=== PATIENT | male | born 1965 | race Caucasian/White ===

== ENCOUNTER 2018-04-09 11:37 | Observation (INO) | payer OTHER ==
[2018-04-09] MEDS ORDERED: NITROGLYCERIN OINT 1 INCH/GM PACKET TOPICAL STA (11:58)
--- NOTE | 2018-04-09 12:03 | ED ---
General Adult HPI - General Chief complaint: Chest Pain Stated complaint: chest pain Time Seen by Provider: 04/09/18 11:45 Source: patient, EMS, RN notes reviewed Mode of arrival: EMS Limitations: no limitations - History of Present Illness Initial comments: This is a 52-year-old male who has a past medical history significant for an NV , smoking, high blood pressure, tachycardia, and addiction to Suboxone. She also states he has a family history of heart disease. Patient was at rehab today when he started having chest pain broke out into a sweat. Patient states the pain did not radiate anywhere. Patient denied any difficulty breathing or shortness of breath. Patient denied any nausea vomiting. Patient states the pain lasted until he took one nitroglycerin improved and then he took 2 morning and doesn't completely went away. Patient denied any abdominal pain. Patient denies any recent fever chills or cough. Patient denies any lightheadedness dizziness or near syncopal episode. Patient denies any chest pain currently. Patient denies any leg swelling or calf tenderness. - Related Data Home Medications Medication Instructions Recorded Confirmed Acetaminophen [Tylenol 8 Hour] 650 mg PO Q4H PRN 04/09/18 04/09/18 Amitriptyline HCl [Elavil] 150 mg PO HS 04/09/18 04/09/18 Calcium/Magnesium 1 tab PO TID PRN 04/09/18 04/09/18 Chlorpheniramine Maleate 4 mg PO Q4H PRN 04/09/18 04/09/18 [Chlor-Trimeton] Ibuprofen [Motrin] 600 mg PO Q6HR PRN 04/09/18 04/09/18 Metoprolol Succinate [Toprol XL] 50 mg PO DAILY 04/09/18 04/09/18 Ondansetron HCl [Zofran] 8 mg PO Q6H PRN 04/09/18 04/09/18 PHENobarbital [Luminal] 32.4 mg PO TID 04/09/18 04/09/18 cloNIDine HCL [Catapres] 0.1 mg PO Q4H PRN 04/09/18 04/09/18 traZODone HCL 50 - 150 mg PO HS 04/09/18 04/09/18 Allergies Allergy/AdvReac Type Severity Reaction Status Date / Time No Known Allergies Allergy Verified 10/30/18 12:21 Review of Systems ROS Statement: Those systems with pertinent positive or pertinent negative responses have been documented in the HPI. ROS Other: All systems not noted in ROS Statement are negative. Past Medical History Past Medical History: Coronary Artery Disease (CAD), Hyperlipidemia, Hypertension, Myocardial Infarction (NV), Supraventricular Tachycardia (SVT) Additional Past Medical History / Comment(s): chronic neck and back pain History of Any Multi-Drug Resistant Organisms: None Reported Additional Past Surgical History / Comment(s): neck surgery Past Psychological History: No Psychological Hx Reported Smoking Status: Current every day smoker Past Alcohol Use History: None Reported Past Drug Use History: Opiates General Exam - General Exam Comments Initial Comments: GENERAL: Patient is well-developed and well-nourished. Patient is nontoxic and well- hydrated and is in mild distress. ENT: Neck is soft and supple. No significant lymphadenopathy is noted. Oropharynx is clear. Moist mucous membranes. Neck has full range of motion without eliciting any pain. EYES: The sclera were anicteric and conjunctiva were pink and moist. Extraocular movements were intact and pupils were equal round and reactive to light. Eyelids were unremarkable. PULMONARY: Unlabored respirations. Good breath sounds bilaterally. No audible rales rhonchi or wheezing was noted. CARDIOVASCULAR: There is a regular rate and rhythm without any murmurs gallops or rubs. ABDOMEN: Soft and nontender with normal bowel sounds. No palpable organomegaly was noted. There is no palpable pulsatile mass. SKIN: Skin is clear with no lesions or rashes and otherwise unremarkable. NEUROLOGIC: Patient is alert and oriented x3. Cranial nerves II through XII are grossly intact. Motor and sensory are also intact. Normal speech, volume and content. Symmetrical smile. MUSCULOSKELETAL: Normal extremities with adequate strength and full range of motion. No lower extremity swelling or edema. No calf tenderness. LYMPHATICS: No significant lymphadenopathy is noted PSYCHIATRIC: Normal psychiatric evaluation. Normal interpersonal interactions appears functionally intact in deals appropriately with others. No signs of depression. No signs of anxiety. Limitations: no limitations Course Vital Signs 04/09/18 04/09/18 04/09/18 11:41 12:00 12:16 Temperature 98.7 F Pulse Rate 83 93 Respiratory 18 18 16 Rate Blood Pressure 135/88 135/88 O2 Sat by Pulse 96 96 Oximetry 04/09/18 13:00 Temperature Pulse Rate 78 Respiratory 18 Rate Blood Pressure 122/84 O2 Sat by Pulse 95 Oximetry Medical Decision Making - Medical Decision Making EKG shows a normal sinus rhythm at 80 bpm ID interval is 150 QRS is 92 QT interval 362 QTC is 438. There is no ST segment elevation or depression Patient had no more chest pain while in the emergency department. Patient's symptoms relieved with nitro earlier and his strong history I decided to place the patient on heparin because I diagnosed with unstable angina. I spoke with Dr. Christensen he accepted the patient admitted the patient wrote admitting orders. I consult to cardiology. Into the heparin Nitropaste and aspirin on the floor. - Lab Data Result diagrams: 04/09/18 11:50 04/09/18 11:50 Lab Results 04/09/18 04/09/18 04/09/18 Range/Units 11:50 11:50 11:50 WBC 5.5 (3.8-10.6) k/uL RBC 5.14 (4.30-5.90) m/uL Hgb 15.5 (13.0-17.5) gm/dL Hct 47.2 (39.0-53.0) % MCV 91.8 (80.0-100.0) fL MCH 30.2 (25.0-35.0) pg MCHC 32.8 (31.0-37.0) g/dL RDW 12.9 (11.5-15.5) % Plt Count 280 (150-450) k/uL Neutrophils % 71 % Lymphocytes % 23 % Monocytes % 4 % Eosinophils % 1 % Basophils % 1 % Neutrophils # 3.9 (1.3-7.7) k/uL Lymphocytes # 1.2 (1.0-4.8) k/uL Monocytes # 0.2 (0-1.0) k/uL Eosinophils # 0.1 (0-0.7) k/uL Basophils # 0.0 (0-0.2) k/uL PT (9.0-12.0) sec INR (<1.2) APTT (22.0-30.0) sec Sodium 137 (137-145) mmol/L Potassium 4.7 (3.5-5.1) mmol/L Chloride 103 (98-107) mmol/L Carbon Dioxide 25 (22-30) mmol/L Anion Gap 9 mmol/L BUN 18 (9-20) mg/dL Creatinine 0.71 (0.66-1.25) mg/dL Est GFR (CKD-EPI)AfAm >90 (>60 ml/min/1.73 sqM) Est GFR (CKD-EPI)NonAf >90 (>60 ml/min/1.73 sqM) Glucose 101 H (74-99) mg/dL Calcium 9.7 (8.4-10.2) mg/dL Magnesium 2.1 (1.6-2.3) mg/dL Total Bilirubin 0.8 (0.2-1.3) mg/dL AST 45 (17-59) U/L ALT 57 (21-72) U/L Alkaline Phosphatase 37 L (38-126) U/L Total Creatine Kinase 59 (55-170) U/L CK-MB (CK-2) 1.0 (0.0-2.4) ng/mL CK-MB (CK-2) Rel Index 1.7 Troponin I <0.012 (0.000-0.034) ng/mL Total Protein 7.1 (6.3-8.2) g/dL Albumin 4.3 (3.5-5.0) g/dL 04/09/18 Range/Units 11:50 WBC (3.8-10.6) k/uL RBC (4.30-5.90) m/uL Hgb (13.0-17.5) gm/dL Hct (39.0-53.0) % MCV (80.0-100.0) fL MCH (25.0-35.0) pg MCHC (31.0-37.0) g/dL RDW (11.5-15.5) % Plt Count (150-450) k/uL Neutrophils % % Lymphocytes % % Monocytes % % Eosinophils % % Basophils % % Neutrophils # (1.3-7.7) k/uL Lymphocytes # (1.0-4.8) k/uL Monocytes # (0-1.0) k/uL Eosinophils # (0-0.7) k/uL Basophils # (0-0.2) k/uL PT 10.7 (9.0-12.0) sec INR 1.1 (<1.2) APTT 23.9 (22.0-30.0) sec Sodium (137-145) mmol/L Potassium (3.5-5.1) mmol/L Chloride (98-107) mmol/L Carbon Dioxide (22-30) mmol/L Anion Gap mmol/L BUN (9-20) mg/dL Creatinine (0.66-1.25) mg/dL Est GFR (CKD-EPI)AfAm (>60 ml/min/1.73 sqM) Est GFR (CKD-EPI)NonAf (>60 ml/min/1.73 sqM) Glucose (74-99) mg/dL Calcium (8.4-10.2) mg/dL Magnesium (1.6-2.3) mg/dL Total Bilirubin (0.2-1.3) mg/dL AST (17-59) U/L ALT (21-72) U/L Alkaline Phosphatase (38-126) U/L Total Creatine Kinase (55-170) U/L CK-MB (CK-2) (0.0-2.4) ng/mL CK-MB (CK-2) Rel Index Troponin I (0.000-0.034) ng/mL Total Protein (6.3-8.2) g/dL Albumin (3.5-5.0) g/dL Critical Care Time Critical Care Time: Yes Total Critical Care Time: 26 Disposition Clinical Impression: Unstable angina pectoris Disposition: ADMITTED IP TO THIS HOSP Referrals: None,Stated [Primary Care Provider] - 1-2 days Time of Disposition: 13:31
[2018-04-09 12:19] LABS: Basophils % (A) 1 %; Eosinophils # (A) 0.1 k/uL (0-0.7); Eosinophils % (A) 1 %; HCT 47.2 % (39.0-53.0); HGB 15.5 gm/dL (13.0-17.5); Lymphocytes # (A) 1.2 k/uL (1.0-4.8); Lymphocytes % (A) 23 %; MCH 30.2 pg (25.0-35.0); MCHC 32.8 g/dL (31.0-37.0); MCV 91.8 fL (80.0-100.0); Mean Platelet Volume 6.3; Monocytes # (A) 0.2 k/uL (0-1.0); Monocytes % (A) 4 %; Neutrophils # (A) 3.9 k/uL (1.3-7.7); Neutrophils % (A) 71 %; Platelet Count 280 k/uL (150-450); RBC 5.14 m/uL (4.30-5.90); RDW 12.9 % (11.5-15.5); WBC 5.5 k/uL (3.8-10.6)
[2018-04-09] MEDS ORDERED: LORazepam 2 MG/ML INJ IV STA (12:22)
[2018-04-09] MEDS ORDERED: ACETAMINOPHEN TAB 325 MG TAB PO STA (12:22)
[2018-04-09 12:35] LABS: INR 1.1 (<1.2)
[2018-04-09 12:36] LABS: Partial Thromboplastin Time 23.9 sec (22.0-30.0); Prothrombin Time 10.7 sec (9.0-12.0)
--- NOTE | 2018-04-09 12:38 | XR ---
EXAMINATION TYPE: XR chest 2V DATE OF EXAM: 04/09/2018 COMPARISON: NONE HISTORY: Chest pain TECHNIQUE: Frontal and lateral views of the chest are obtained. FINDINGS: There are overlying cardiac leads and the patient is rotated. Right hemidiaphragm is elevat ed. There is no focal air space opacity, pleural effusion, or pneumothorax seen. The cardiac silhoue tte size is within normal limits. The osseous structures are intact. IMPRESSION: Elevated right hemidiaphragm.
[2018-04-09 12:39] LABS: ALT 57 U/L (21-72); AST 45 U/L (17-59); Albumin 4.3 g/dL (3.5-5.0); Alkaline Phosphatase 37 U/L (38-126); Anion Gap 9 mmol/L; Blood Urea Nitrogen 18 mg/dL (9-20); Calcium 9.7 mg/dL (8.4-10.2); Carbon Dioxide 25 mmol/L (22-30); Chloride 103 mmol/L (98-107); Glucose 101 mg/dL (74-99); Magnesium 2.1 mg/dL (1.6-2.3); Potassium 4.7 mmol/L (3.5-5.1); Sodium 137 mmol/L (137-145); Total Bilirubin 0.8 mg/dL (0.2-1.3); Total Protein 7.1 g/dL (6.3-8.2)
[2018-04-09 12:45] LABS: Creatine Kinase 59 U/L (55-170)
[2018-04-09 12:57] LABS: Troponin I <0.012 ng/mL (0.000-0.034)
[2018-04-09] MEDS ORDERED: HEPARIN SODIUM,PORCINE 5,000 UNIT/ML 1 ML VIAL IV ONE (13:21)
[2018-04-09] MEDS ORDERED: HEPARIN SOD,PORK IN 0.45% NACL 25,000 UNIT in 0.45% NACL 1 500ML.BAG IV SCH (13:30)
[2018-04-09] MEDS ORDERED: NITROGLYCERIN SL TABS 0.4 MG TAB SUBLINGUAL PRN (14:42)
[2018-04-09] MEDS ORDERED: CALCIUM PO PRN (15:15)
[2018-04-09] MEDS ORDERED: MAGNESIUM PO PRN (15:15)
[2018-04-09] MEDS ORDERED: LORazepam 1 MG TAB PO PRN (15:50)
[2018-04-09 18:09] LABS: Creatine Kinase 55 U/L (55-170)
[2018-04-09 18:21] LABS: Creatine Kinase MB 0.9 ng/mL (0.0-2.4); Troponin I <0.012 ng/mL (0.000-0.034)
[2018-04-09] MEDS: ACETAMINOPHEN TAB 325 MG TAB PO PRN ×2 (19:07→23:30)
[2018-04-09] MEDS: NITROGLYCERIN OINT 1 INCH/GM PACKET TOPICAL SCH ×2 (19:08→23:15)
[2018-04-09] MEDS: PHENobarbital 32.4 MG TAB PO SCH ×2 (19:54→21:08)
[2018-04-09] MEDS ORDERED: AMITRIPTYLINE HCL 50 MG TAB PO SCH (21:00)
[2018-04-09] MEDS ORDERED: LORazepam 2 MG/ML INJ IV PRN ×2 (21:20)
[2018-04-09] MEDS ORDERED: NICOTINE 14MG/24HR PATCH TRANSDERM STA (23:19)
--- NOTE | 2018-04-09 23:38 | P.HPIM ---
History of Present Illness H&P Date: 04/09/18 Chief Complaint: Chest pain Patient is a 52-year-old male with a known history of chronic back pain, neck pain, C7 fracture, seizure disorder and opiate addiction currently on Suboxone 16 mg daily, currently at [facility] came to ER with complaints of chest pain started this morning. Pain is associated with sweating. Denied any radiation or difficulty in breathing. No nausea or vomiting. Patient says that his blood pressure was elevated at 204 / 116 mmHg at the rehab facility. Otherwise denied any headache or dizziness or lightheadedness. No fever no chills. No cough or sputum production. Denied any leg swelling. No orthopnea or PND. Patient says that he had cardiac catheterization in the past and no stents were placed. Patient says that he had history of ID that was showed in the EKG lateral. Patient says that he is supposed to be on Suboxone daily but his medications were completely stopped at the rehab. Chest x-ray showed elevated right diaphragm. EKG showed normal sinus rhythm. Review of Systems Constitutional: Patient denies any fever or chills . No generalized weakness or weight loss. Abdomen: Patient denied nausea vomiting and diarrhea and abdominal pain. Cardiovascular: Chest pain. No short of breath no palpitations. Respiratory: patient denied any cough is from production. No shortness of breath Neurologic: Patient denied any numbness or tingling headache. Musculoskeletal: Patient denies any complaints of joint swelling or deformity. Skin: Negative Psychiatric: Negative Endocrine: No heat or cold intolerance. No recent weight gain. Genitourinary: No dysuria or hematuria. All other 14 point ROS negative except the above Past Medical History Past Medical History: Hyperlipidemia, Hypertension, Myocardial Infarction (ID), Seizure Disorder, Supraventricular Tachycardia (SVT) Additional Past Medical History / Comment(s): Chronic neck and back pain, C7 fracture, seizure disorder with last seizure one week ago, opiate addiction and now suboxone addiction and currently in rehab. Last Myocardial Infarction Date:: 2011-treated at [facility] History of Any Multi-Drug Resistant Organisms: None Reported Past Surgical History: Heart Catheterization Additional Past Surgical History / Comment(s): Cardiac cath without intervention , cervical injections. Past Anesthesia/Blood Transfusion Reactions: No Reported Reaction Past Psychological History: Depression Additional Psychological History / Comment(s): Pt currently at [facility] for suboxone addiction. He lives in [place], [place] with his spouse. He is disabled. Smoking Status: Current every day smoker Past Alcohol Use History: None Reported Additional Past Alcohol Use History / Comment(s): Pt started smoking in 1982 and is a half ppd smoker. Past Drug Use History: Opiates Additional Drug Use History / Comment(s): Past opieate addiction, current suboxone addiction. - Past Family History Mother Family Medical History: No Reported History Father Family Medical History: Diabetes Mellitus Medications and Allergies Home Medications Medication Instructions Recorded Confirmed Type Acetaminophen [Tylenol 8 Hour] 650 mg PO Q4H PRN 04/09/18 04/09/18 History Amitriptyline HCl [Elavil] 150 mg PO HS 04/09/18 04/09/18 History Baclofen [Lioresal] 20 mg PO TID 04/09/18 04/09/18 History Buprenorphine HCl/Naloxone HCl 1 film SL DAILY 04/09/18 04/09/18 History [Suboxone 8 mg-2 mg Sl Film] Calcium/Magnesium 1 tab PO TID PRN 04/09/18 04/09/18 History Chlorpheniramine Maleate 4 mg PO Q4H PRN 04/09/18 04/09/18 History [Chlor-Trimeton] Ibuprofen [Motrin] 600 mg PO Q6HR PRN 04/09/18 04/09/18 History Metoprolol Succinate [Toprol XL] 50 mg PO DAILY 04/09/18 04/09/18 History Ondansetron HCl [Zofran] 8 mg PO Q6H PRN 04/09/18 04/09/18 History PHENobarbital [Luminal] 32.4 mg PO TID 04/09/18 04/09/18 History cloNIDine HCL [Catapres] 0.1 mg PO Q4H PRN 04/09/18 04/09/18 History traZODone HCL 50 - 150 mg PO HS 04/09/18 04/09/18 History Allergies Allergy/AdvReac Type Severity Reaction Status Date / Time No Known Allergies Allergy Verified 04/09/18 12:21 Physical Exam Vitals: Vital Signs Temp Pulse Resp BP Pulse Ox 04/09/18 14:00 85 16 118/80 96 04/09/18 13:30 74 16 132/68 95 04/09/18 13:00 78 18 122/84 95 04/09/18 12:16 16 04/09/18 12:00 93 18 135/88 96 04/09/18 11:41 98.7 F 83 18 135/88 96 Intake and Output 04/09/18 04/09/18 04/09/18 06:59 14:59 22:59 Other: Weight 106.594 kg PHYSICAL EXAMINATION: Patient is lying in the bed comfortably, no acute distress, awake alert and oriented. Anxious.. HEENT: Normocephalic. Neck is supple. Pupils reactive. Nostrils clear. Oral cavity is moist. Ears reveal no drainage. Neck reveals no JVD, carotid bruits, or thyromegaly. CHEST EXAMINATION: Trachea is central. Symmetrical expansion. Bibasilar diminished air entry. Lung aguero clear to auscultation and percussion. CARDIAC: Normal S1, S2 with no gallops. No murmurs ABDOMEN: Soft. Bowel sounds normal. No organomegaly. No abdominal bruits. Extremities: reveal no edema. No clubbing or cyanosis Neurologically awake, alert, oriented x3 with well-coordinated movements. No focal deficits noted Skin: No rash or skin lesions. Psychiatric: Coperative. Nonsuicidal Musculoskeletal: No joint swelling or deformity. Normal range of motion. Results CBC & Chem 7: 04/09/18 11:50 04/09/18 11:50 Labs: Abnormal Lab Results - Last 24 Hours (Table) 04/09/18 Range/Units 11:50 Glucose 101 H (74-99) mg/dL Alkaline Phosphatase 37 L (38-126) U/L Thrombosis Risk Factor Assmnt - Choose All That Apply Any of the Below Risk Factors Present?: Yes Each Factor Represents 1 point: Age 41-60 years, Obesity (BMI >25) Other Risk Factors: No Other congenital or acquired thrombophilia - If yes, enter type in comment: No Thrombosis Risk Factor Assessment Total Risk Factor Score: 2 Thrombosis Risk Factor Assessment Level: Low Risk Assessment and Plan Assessment: Chest pain/unstable angina. Opiate medication addiction. Currently at rehab. Chronic neck pain and back pain Hypertension Hyperlipidemia History of SVT Seizure disorder last seizure one week ago History of cardiac Catheterization without intervention Currently every day smoker GI/DVT prophylaxis Plan: Patient be continued on telemetry monitoring. Troponin 2 negative. Continue the home pain medications and follow up closely. Cardiology was consulted for further evaluation. Smoking cessation was counseled extensively. Further recommendations based on the clinical course. Time with Patient: Greater than 30
[2018-04-09 23:50] LABS: Cholesterol 213 mg/dL (<200); HDL Cholesterol 54 mg/dL (40-60); LDL Cholesterol,Calculated 148 mg/dL (0-99); Triglycerides 55 mg/dL (<150)
[2018-04-10 00:50] LABS: Creatine Kinase 59 U/L (55-170)
[2018-04-10] MEDS: LORazepam 2 MG/ML INJ IV PRN ×4 (00:59→06:45)
[2018-04-10 01:02] LABS: Creatine Kinase MB 1.1 ng/mL (0.0-2.4); Troponin I <0.012 ng/mL (0.000-0.034)
[2018-04-10 03:31] VITALS: RESP 18
[2018-04-10] MEDS: NITROGLYCERIN OINT 1 INCH/GM PACKET TOPICAL SCH ×2 (03:49→12:11)
[2018-04-10] MEDS: ACETAMINOPHEN TAB 325 MG TAB PO PRN (04:55)
[2018-04-10] MEDS ORDERED: HALOPERIDOL LACTATE 5 MG/ML 1 ML VIAL IM PRN (05:52)
[2018-04-10] MEDS ORDERED: ASPIRIN 325 MG TAB PO SCH (09:00)
[2018-04-10] MEDS ORDERED: METOPROLOL SUCCINATE (ER) 50 MG TAB.ER.24H PO SCH (09:00)
[2018-04-10] MEDS: PHENobarbital 32.4 MG TAB PO SCH (09:15)
--- NOTE | 2018-04-10 10:33 | ECHOF ---
Referral Reason: MEASUREMENTS -------- HEIGHT: 185.4 cm WEIGHT: 101.6 kg BP: RVIDd: 2.4 cm (< 3.3) IVSd: 1.0 cm (0.6 - 1.1) LVIDd: 3.8 cm (3.9 - 5.3) LVPWd: 1.1 cm (0.6 - 1.1) IVSs: 1.6 cm LVIDs: 1.4 cm LVPWs: 1.9 cm Ao Diam: 3.0 cm (2.0 - 3.7) AV Cusp: 1.8 cm (1.5 - 2.6) LA Diam: 3.0 cm (2.7 - 3.8) MV EXCURSION: 14.382 mm (> 18.000) MV EF SLOPE: 121 mm/s (70 - 150) EPSS: 0.4 cm MV E Duran: 0.67 m/s MV DecT: 294 ms MV A Duran: 0.81 m/s MV E/A Ratio: 0.83 RAP: 5.00 mmHg RVSP: 12.89 mmHg FINDINGS -------- Sinus rhythm. This was a technically difficult study with suboptimal apical views. Pt. not compliant. The left ventricular size is normal. Left ventricular wall thickness is normal. Overall left vent ricular systolic function is normal with, an EF between 55 - 60 %. The right ventricle is normal in size and function. The left atrium is normal in size. The right atrium is normal in size. Aortic valve is trileaflet and is mildly thickened. The mitral valve leaflets are mildly thickened. There is trace mitral regurgitation. Trace tricuspid regurgitation present. The right ventricular systolic pressure, as measured by Dopp ler, is 12.89mmHg. Pulmonic valve appears structurally normal. The aortic root size is normal. Normal inferior vena cava with normal inspiratory collapse consistent with estimated right atrial pre ssure of 5 mmHg. The pericardium is normal. CONCLUSIONS -------- 1. Sinus rhythm. 2. This was a technically difficult study with suboptimal apical views. 3. Pt. not compliant. 4. The left ventricular size is normal. 5. Left ventricular wall thickness is normal. 6. Overall left ventricular systolic function is normal with, an EF between 55 - 60 %. 7. The right ventricle is normal in size and function. 8. The left atrium is normal in size. 9. The right atrium is normal in size. 10. Aortic valve is trileaflet and is mildly thickened. 11. The mitral valve leaflets are mildly thickened. 12. There is trace mitral regurgitation. 13. Trace tricuspid regurgitation present. 14. The right ventricular systolic pressure, as measured by Doppler, is 12.89mmHg. 15. Pulmonic valve appears structurally normal. 16. The aortic root size is normal. 17. Normal inferior vena cava with normal inspiratory collapse consistent with estimated right atrial pressure of 5 mmHg. 18. The pericardium is normal. SHELL MACHINE OPERATOR: Betty Mosley RDCS
[2018-04-10 11:45] VITALS: BP 131/87; PULSE 85; TEMP 98.7
[2018-04-10] MEDS ORDERED: IBUPROFEN 600 MG TAB PO PRN (12:00)
[2018-04-10] MEDS ORDERED: BACLOFEN 10 MG TAB PO SCH (12:15)
--- NOTE | 2018-04-10 12:56 | CONS ---
CONSULTATION CHIEF COMPLAINT: Chest pain. Sky is a 52-year-old gentleman who is currently going through [facility], currently on Suboxone for opiate addiction. Comes to hospital complaining of chest pain. It started early yesterday morning, did not radiate anywhere. His blood pressures were elevated when he first came. Last night, patient became somewhat agitated and has received Haldol and Ativan and at the time of my evaluation, he is quite sleepy. He apparently has had prior cardiac catheterization without any stenting. PAST MEDICAL HISTORY: Negative for hypertension, diabetes, dyslipidemia. CURRENT MEDICATIONS: Include Elavil, naloxone, magnesium, Toprol-XL. SOCIAL HISTORY: Significant for smoking, drug abuse. REVIEW OF SYSTEMS: I am unable to obtain from the patient. PHYSICAL EXAMINATION: He is comfortable at rest. Vital signs are stable. There is no jugular venous distention. Chest exam reveals good air entry bilaterally. Heart exam reveals first and second heart sounds. No gallop. No murmur. No rub. Abdomen is soft, nontender. Exam of extremities did not reveal any edema. Peripheral pulses are felt. EKG does not reveal acute ischemic changes. Cardiac enzymes have been negative. Hemoglobin is normal at 15. Potassium is 4.7, creatinine is 0.7. LDL cholesterol is 148. ASSESSMENT: 1. Chest pain, myocardial infarction ruled out. 2. History of drug abuse, currently going through rehab. 3. Agitation, patient has received Haldol and ATIVAN. PLAN: I am going to obtain a 2D echo on him to evaluate his LV function. He is not a candidate for any invasive or noninvasive workup for possible CAD as he is quite sedated at the moment. We may consider a stress test on him when he is more stable. MMODL / IJN: [id number] /
[2018-04-10 13:53] VITALS: BMI 28.0
--- NOTE | 2018-04-11 00:16 | P.DS ---
Providers Date of admission: 04/09/18 14:49 Expected date of discharge: 04/10/18 Attending physician: Nicole Christensen Consults: 04/09/18 14:42 Consult Physician Urgent Consulting Provider: [facility] Consult Reason/Comments: Unstable angina Do you want consulting provider notified?: Yes Primary care physician: Stated None Hospital Course: Discharge diagnosis Atypical Chest pain. Ruled out ACS. Opiate medication addiction. Currently at rehab. Chronic neck pain and back pain Hypertension Hyperlipidemia History of SVT Seizure disorder last seizure one week ago History of cardiac Catheterization without intervention Currently every day smoker GI/DVT prophylaxis Hospital course Patient is a 52-year-old male with a known history of chronic back pain, neck pain, C7 fracture, seizure disorder and opiate addiction currently on Suboxone 16 mg daily, currently at [facility] came to ER with complaints of chest pain started this morning. Pain is associated with sweating. Denied any radiation or difficulty in breathing. No nausea or vomiting. Patient says that his blood pressure was elevated at 204 / 116 mmHg at the rehab facility. Otherwise denied any headache or dizziness or lightheadedness. No fever no chills. No cough or sputum production. Denied any leg swelling. No orthopnea or PND. Patient says that he had cardiac catheterization in the past and no stents were placed. Patient says that he had history of TX that was showed in the EKG lateral. Patient says that he is supposed to be on Suboxone daily but his medications were completely stopped at the rehab. Chest x-ray showed elevated right diaphragm. EKG showed normal sinus rhythm. Plan: Patient was continued on telemetry monitoring. Troponin 3 and EKG negative. Continue the home pain medications and follow up closely. Cardiology was consulted. 2-D echo cardiac exam showed normal ejection fraction.. Smoking cessation was counseled extensively. Patient wants to be discharged home today and would like to go to rehab back again. Cleared from cardiology standpoint. Discharge physical examination was done and vitals reviewed. Patient Condition at Discharge: Fair Plan - Discharge Summary Discharge Rx Participant: No New Discharge Prescriptions: Continue traZODone HCL 50 - 150 mg PO HS Ibuprofen [Motrin] 600 mg PO Q6HR PRN PRN Reason: Pain Chlorpheniramine Maleate [Chlor-Trimeton] 4 mg PO Q4H PRN PRN Reason: Allergy Symptoms Calcium/Magnesium 1 tab PO TID PRN PRN Reason: muscle cramps Acetaminophen [Tylenol 8 Hour] 650 mg PO Q4H PRN PRN Reason: Pain Ondansetron HCl [Zofran] 8 mg PO Q6H PRN PRN Reason: Nausea Amitriptyline HCl [Elavil] 150 mg PO HS PHENobarbital [Luminal] 32.4 mg PO TID Metoprolol Succinate [Toprol XL] 50 mg PO DAILY Baclofen [Lioresal] 20 mg PO TID Buprenorphine HCl/Naloxone HCl [Suboxone 8 mg-2 mg Sl Film] 1 film SL DAILY Discontinued cloNIDine HCL [Catapres] 0.1 mg PO Q4H PRN PRN Reason: Blood Pressure - High Discharge Medication List Acetaminophen [Tylenol 8 Hour] 650 mg PO Q4H PRN 04/09/18 [History] Amitriptyline HCl [Elavil] 150 mg PO HS 04/09/18 [History] Baclofen [Lioresal] 20 mg PO TID 04/09/18 [History] Buprenorphine HCl/Naloxone HCl [Suboxone 8 mg-2 mg Sl Film] 1 film SL DAILY [History] Calcium/Magnesium 1 tab PO TID PRN 04/09/18 [History] Chlorpheniramine Maleate [Chlor-Trimeton] 4 mg PO Q4H PRN 04/09/18 [History] Ibuprofen [Motrin] 600 mg PO Q6HR PRN 04/09/18 [History] Metoprolol Succinate [Toprol XL] 50 mg PO DAILY 04/09/18 [History] Ondansetron HCl [Zofran] 8 mg PO Q6H PRN 04/09/18 [History] PHENobarbital [Luminal] 32.4 mg PO TID 04/09/18 [History] traZODone HCL 50 - 150 mg PO HS 04/09/18 [History] Follow up Appointment(s)/Referral(s): None,Stated [Primary Care Provider] - 1-2 days Discharge Disposition: HOME SELF-CARE
== END 2018-04-10 14:07 | disposition home or self-care (01) ==
LOC: EC 11:37 → 1SOBS 14:49
PROVIDERS: ADMIT Internal Medicine; ATTEND Internal Medicine
DX: R07.89 Other chest pain (principal); R61 Generalized hyperhidrosis; F11.20 Opioid dependence, uncomplicated; I10 Essential (primary) hypertension; I47.1 Supraventricular tachycardia; I25.110 Atherosclerotic heart disease of native coronary artery with unstable angina pectoris; E78.5 Hyperlipidemia, unspecified; G89.29 Other chronic pain; M54.2 Cervicalgia; M54.9 Dorsalgia, unspecified; G40.909 Epilepsy, unspecified, not intractable, without status epilepticus; J98.6 Disorders of diaphragm; F32.9 Major depressive disorder, single episode, unspecified; F17.210 Nicotine dependence, cigarettes, uncomplicated; E66.9 Obesity, unspecified; Z68.28 Body mass index [BMI] 28.0-28.9, adult; R45.1 Restlessness and agitation; I25.2 Old myocardial infarction; Z79.899 Other long term (current) drug therapy; Z87.81 Personal history of (healed) traumatic fracture; Z83.3 Family history of diabetes mellitus
CPT/HCPCS: 96366 ×3; 96375 ×2; 96376 ×3; 96365; 99291; 36415; 93005; 93306; 80061; 80053; 82550 ×2; 82553 ×2; 83735; 84484 ×2; 85025; 85610; 85730 ×2; 71046; G0378 ×2; S4990; J2060 ×2; J1630; J1644 ×2

== ENCOUNTER 2021-07-12 01:03 | Emergency (ER) | payer OTHER ==
[2021-07-12 01:21] VITALS: BP 128/80; PULSE 71; RESP 22; TEMP 98.2
--- NOTE | 2021-07-12 01:48 | ED ---
Seizure HPI - General Chief Complaint: Seizure Stated Complaint: Seizure Time Seen by Provider: 07/12/21 01:27 Source: patient Mode of arrival: ambulatory Limitations: no limitations - History of Present Illness Initial Comments: This patient is a 55-year-old man who presents to be evaluated for left facial injury. The patient states that he has history of focal seizures and that over the past two days he has had 3 seizures. He states that they tend to be brought on by stress. Tonight he had a seizure and fell striking the left infraorbital area. He was told that he had an injury to that area back in April, and that he had left orbital fracture. He reportedly was recommended to have surgery but he refused at that time. Patient had been incarcerated and wanted to get out first. He has been out for a couple of weeks now and then over the past 2 days has had 3 seizures. He does report being compliant with his medications. Patient denies any change in vision or any neurologic symptoms. No fever or chills. No headache. MD Complaint: seizure Onset/Timin -: days(s) Description of Episode: other -: minutes(s) Witnessed: no Trauma: Yes Seizure History: known seizure disorder Place: home Possible Precipitating Event: stress Associated Symptoms: denies other symptoms Treatments Prior to Arrival: none - Related Data Home Medications Medication Instructions Recorded Confirmed Acetaminophen [Tylenol 8 Hour] 650 mg PO Q4H PRN 04/09/18 04/09/18 Amitriptyline HCl [Elavil] 150 mg PO HS 04/09/18 04/09/18 Baclofen [Lioresal] 20 mg PO TID 04/09/18 04/09/18 Buprenorphine HCl/Naloxone HCl 1 film SL DAILY 04/09/18 04/09/18 [Suboxone 8 mg-2 mg Sl Film] Calcium/Magnesium 1 tab PO TID PRN 04/09/18 04/09/18 Chlorpheniramine Maleate 4 mg PO Q4H PRN 04/09/18 04/09/18 [Chlor-Trimeton] Ibuprofen [Motrin] 600 mg PO Q6HR PRN 04/09/18 04/09/18 Metoprolol Succinate [Toprol XL] 50 mg PO DAILY 04/09/18 04/09/18 PHENobarbitaL [Luminal] 32.4 mg PO TID 04/09/18 04/09/18 ondansetron HCL [Zofran] 8 mg PO Q6H PRN 04/09/18 04/09/18 traZODone HCL 50 - 150 mg PO HS 04/09/18 04/09/18 Previous Rx's Medication Instructions Recorded PHENobarbitaL [Luminal] 32.4 mg PO TID 3 Days #30 tablet 07/12/21 Allergies Allergy/AdvReac Type Severity Reaction Status Date / Time No Known Allergies Allergy Verified 07/12/21 01:21 Review of Systems ROS Statement: Those systems with pertinent positive or pertinent negative responses have been documented in the HPI. ROS Other: All systems not noted in ROS Statement are negative. Constitutional: Denies: fever, chills, weakness Eyes: Denies: eye pain, vision change ENT: Denies: epistaxis, congestion Respiratory: Denies: cough, dyspnea Cardiovascular: Denies: chest pain, palpitations, syncope Gastrointestinal: Denies: abdominal pain, vomiting, diarrhea Genitourinary: Denies: dysuria, hematuria Musculoskeletal: Denies: back pain Skin: Denies: rash Neurological: Reports: as per HPI, other. Denies: headache, weakness, numbness Psychiatric: Denies: anxiety, depression, suicidal thoughts Past Medical History Past Medical History: Hyperlipidemia, Hypertension, Myocardial Infarction ([place]), Seizure Disorder, Supraventricular Tachycardia (SVT) Additional Past Medical History / Comment(s): Chronic neck and back pain, C7 fracture, seizure disorder with last seizure one week ago, opiate addiction and now suboxone addiction and currently in rehab. Last Myocardial Infarction Date:: 2011-treated at [facility] History of Any Multi-Drug Resistant Organisms: None Reported Past Surgical History: Heart Catheterization Additional Past Surgical History / Comment(s): Cardiac cath without intervention, cervical injections. Past Anesthesia/Blood Transfusion Reactions: No Reported Reaction Past Psychological History: Bipolar, Depression Smoking Status: Current every day smoker Past Alcohol Use History: None Reported Past Drug Use History: Opiates - Past Family History Mother Family Medical History: No Reported History Father Family Medical History: Diabetes Mellitus General Exam Limitations: no limitations General appearance: alert, in no apparent distress Head exam: Present: atraumatic, normocephalic Eye exam: Present: normal appearance, periorbital tenderness. Absent: scleral icterus, conjunctival injection, periorbital swelling ENT exam: Present: normal oropharynx Neck exam: Present: normal inspection, full ROM. Absent: tenderness, meningismus Respiratory exam: Present: normal lung sounds bilaterally. Absent: respiratory distress, wheezes, rales, rhonchi, stridor Cardiovascular Exam: Present: regular rate, normal rhythm, normal heart sounds. Absent: systolic murmur, diastolic murmur, rubs, gallop GI/Abdominal exam: Present: soft. Absent: distended, tenderness, guarding, rebound, rigid, mass Extremities exam: Present: normal inspection, normal capillary refill. Absent: pedal edema, calf tenderness Back exam: Present: normal inspection. Absent: vertebral tenderness Neurological exam: Present: alert, oriented X3, CN II-XII intact. Absent: motor sensory deficit Skin exam: Present: warm, dry, intact, normal color. Absent: rash Course Vital Signs 07/12/21 01:16 Temperature 98.2 F Pulse Rate 71 Respiratory 22 Rate Blood Pressure 128/80 O2 Sat by Pulse 97 Oximetry Medical Decision Making - Lab Data Result diagrams: 07/12/21 02:33 07/12/21 02:33 Lab Results 07/12/21 07/12/21 Range/Units 02:33 02:33 WBC 5.5 (3.8-10.6) k/uL RBC 4.43 (4.30-5.90) m/uL Hgb 14.4 (13.0-17.5) gm/dL Hct 42.3 (39.0-53.0) % MCV 95.5 (80.0-100.0) fL MCH 32.4 (25.0-35.0) pg MCHC 34.0 (31.0-37.0) g/dL RDW 12.3 (11.5-15.5) % Plt Count 230 (150-450) k/uL MPV 6.9 Neutrophils % 37 % Lymphocytes % 49 % Monocytes % 7 % Eosinophils % 4 % Basophils % 1 % Neutrophils # 2.0 (1.3-7.7) k/uL Lymphocytes # 2.7 (1.0-4.8) k/uL Monocytes # 0.4 (0-1.0) k/uL Eosinophils # 0.2 (0-0.7) k/uL Basophils # 0.1 (0-0.2) k/uL Sodium 137 (137-145) mmol/L Potassium 3.9 (3.5-5.1) mmol/L Chloride 104 (98-107) mmol/L Carbon Dioxide 25 (22-30) mmol/L Anion Gap 8 mmol/L BUN 17 (9-20) mg/dL Creatinine 0.69 (0.66-1.25) mg/dL Est GFR (CKD-EPI)AfAm >90 (>60 ml/min/1.73 sqM) Est GFR (CKD-EPI)NonAf >90 (>60 ml/min/1.73 sqM) Glucose 93 (74-99) mg/dL Calcium 8.7 (8.4-10.2) mg/dL Total Bilirubin 0.5 (0.2-1.3) mg/dL AST 55 (17-59) U/L ALT 40 (4-49) U/L Alkaline Phosphatase 48 (38-126) U/L Total Protein 5.8 L (6.3-8.2) g/dL Albumin 3.5 (3.5-5.0) g/dL Valproic Acid 33.4 ug/mL Disposition Clinical Impression: Focal seizure Disposition: HOME SELF-CARE Condition: Good Instructions (If sedation given, give patient instructions): Seizure/Epilepsy Discharge Instructions & Follow-Up Prescriptions: PHENobarbitaL [Luminal] 32.4 mg PO TID 3 Days #30 tablet Is patient prescribed a controlled substance at d/c from ED?: No Referrals: None,Stated [Primary Care Provider] - 1-2 days Robert Fernandez MD [STAFF PHYSICIAN] - 1-2 days
[2021-07-12 02:58] LABS: Basophils # (A) 0.1 k/uL (0-0.2); Basophils % (A) 1 %; Eosinophils # (A) 0.2 k/uL (0-0.7); Eosinophils % (A) 4 %; HCT 42.3 % (39.0-53.0); HGB 14.4 gm/dL (13.0-17.5); Lymphocytes # (A) 2.7 k/uL (1.0-4.8); Lymphocytes % (A) 49 %; MCH 32.4 pg (25.0-35.0); MCV 95.5 fL (80.0-100.0); Mean Platelet Volume 6.9; Monocytes # (A) 0.4 k/uL (0-1.0); Monocytes % (A) 7 %; Neutrophils % (A) 37 %; Platelet Count 230 k/uL (150-450); RBC 4.43 m/uL (4.30-5.90); RDW 12.3 % (11.5-15.5); WBC 5.5 k/uL (3.8-10.6)
--- NOTE | 2021-07-12 03:00 | CT ---
EXAMINATION TYPE: CT facial bones wo con DATE OF EXAM: 07/12/2021 COMPARISON: None HISTORY: seizure facial pain CT DLP: 570.9 mGycm Automated exposure control for dose reduction was used. Images obtained from bottom of the mandible to the top of the frontal sinuses with no contrast. FINDINGS: The mandibular ring is intact temporomandibular joints are intact. The zygomatic arches appear normal . Maxilla is intact. Nasal bone is intact. Orbital margins are intact. There is no evidence of orbita l blowout fracture. There is small mucous retention cyst right maxillary sinus. There is otherwise no rmal aeration of the paranasal sinuses. There is normal aeration of the mastoid sinuses. IMPRESSION: Negative CT scan of the facial bones. No fracture.
[2021-07-12 03:14] LABS: ALT 40 U/L (4-49); AST 55 U/L (17-59); African American GFR (CKD) >90 (>60 ml/min/1.73 sqM); Albumin 3.5 g/dL (3.5-5.0); Alkaline Phosphatase 48 U/L (38-126); Anion Gap 8 mmol/L; Blood Urea Nitrogen 17 mg/dL (9-20); Calcium 8.7 mg/dL (8.4-10.2); Carbon Dioxide 25 mmol/L (22-30); Chloride 104 mmol/L (98-107); Glucose 93 mg/dL (74-99); Non-African American GFR(CKD) >90 (>60 ml/min/1.73 sqM); Potassium 3.9 mmol/L (3.5-5.1); Sodium 137 mmol/L (137-145); Total Bilirubin 0.5 mg/dL (0.2-1.3); Total Protein 5.8 g/dL (6.3-8.2)
[2021-07-12 03:19] LABS: Valproic Acid (Depakene) 33.4 ug/mL
[2021-07-12] MEDS ORDERED: ACET/COD 300 MG/30 MG STARTER PACK 6 TAB BTL PO STA (03:36)
== END 2021-07-12 04:43 | disposition home or self-care (01) ==
LOC: EC 01:03
DX: G40.909 Epilepsy, unspecified, not intractable, without status epilepticus (principal); I10 Essential (primary) hypertension; I25.2 Old myocardial infarction; E78.5 Hyperlipidemia, unspecified; F31.9 Bipolar disorder, unspecified; F17.200 Nicotine dependence, unspecified, uncomplicated; F11.90 Opioid use, unspecified, uncomplicated; Z79.1 Long term (current) use of non-steroidal anti-inflammatories (NSAID); Z79.899 Other long term (current) drug therapy
CPT/HCPCS: 36415; 70486; 80053; 80164; 80184; 85025; 99284

== ENCOUNTER 2021-08-31 00:38 | Emergency (ER) | payer OTHER ==
[2021-08-31 00:49] VITALS: RESP 18; TEMP 98.1
[2021-08-31] MEDS ORDERED: GABAPENTIN 300 MG CAP PO STA (02:46)
[2021-08-31] MEDS ORDERED: predniSONE 20 MG TAB PO STA (02:46)
[2021-08-31 02:56] VITALS: BP 132/84; PULSE 75
--- NOTE | 2021-08-31 03:01 | ED ---
Seizure HPI - General Chief Complaint: Seizure Stated Complaint: Seizure, neck pain Time Seen by Provider: 08/31/21 02:07 Source: patient Mode of arrival: ambulatory Limitations: no limitations - History of Present Illness Initial Comments: This patient is a 55-year-old man with history of seizure disorder who presents with complaint that he had a seizure tonight. The patient states that he has not really here because of the seizure but because he believes that he "clenched up" and that he has strained his neck. Patient states that he does have history of previous neck injury. He states that he has C7 disc injury. He feels like the muscles were struck head and that this is causing a flareup of his chronic neck pain. He states that he is out of his usual gabapentin and he is requesting to have that refilled. Patient denies any weakness or numbness of the extremities or down into the back or legs. Patient did not have a fall injury. He states that he was in bed when the seizure occurred. MD Complaint: seizure -: hour(s) Description of Episode: tonic-clonic movement -: second(s) Seizure History: known seizure disorder Place: home Associated Symptoms: other Treatments Prior to Arrival: none - Related Data Home Medications Medication Instructions Recorded Confirmed Acetaminophen [Tylenol 8 Hour] 650 mg PO Q4H PRN 04/09/18 04/09/18 Amitriptyline HCl [Elavil] 150 mg PO HS 04/09/18 04/09/18 Baclofen [Lioresal] 20 mg PO TID 04/09/18 04/09/18 Buprenorphine HCl/Naloxone HCl 1 film SL DAILY 04/09/18 04/09/18 [Suboxone 8 mg-2 mg Sl Film] Calcium/Magnesium 1 tab PO TID PRN 04/09/18 04/09/18 Chlorpheniramine Maleate 4 mg PO Q4H PRN 04/09/18 04/09/18 [Chlor-Trimeton] Ibuprofen [Motrin] 600 mg PO Q6HR PRN 04/09/18 04/09/18 Metoprolol Succinate [Toprol XL] 50 mg PO DAILY 04/09/18 04/09/18 PHENobarbitaL [Luminal] 32.4 mg PO TID 04/09/18 04/09/18 ondansetron HCL [Zofran] 8 mg PO Q6H PRN 04/09/18 04/09/18 traZODone HCL 50 - 150 mg PO HS 04/09/18 04/09/18 Previous Rx's Medication Instructions Recorded PHENobarbitaL [Luminal] 32.4 mg PO TID 3 Days #30 tablet 07/12/21 Gabapentin 300 mg PO TID 3 Days #21 cap 08/31/21 predniSONE [Deltasone] 20 mg PO BID #8 tab 08/31/21 Allergies Allergy/AdvReac Type Severity Reaction Status Date / Time No Known Allergies Allergy Verified 07/12/21 01:21 Review of Systems ROS Statement: Those systems with pertinent positive or pertinent negative responses have been documented in the HPI. ROS Other: All systems not noted in ROS Statement are negative. Constitutional: Denies: fever, chills, weakness Respiratory: Denies: cough, dyspnea Cardiovascular: Denies: chest pain, syncope Gastrointestinal: Denies: abdominal pain, vomiting Genitourinary: Denies: dysuria Musculoskeletal: Denies: back pain Skin: Denies: rash Neurological: Denies: headache, weakness, numbness, paresthesias Past Medical History Past Medical History: Hyperlipidemia, Hypertension, Myocardial Infarction ([place]), Seizure Disorder, Supraventricular Tachycardia (SVT) Additional Past Medical History / Comment(s): Chronic neck and back pain, C7 fracture, seizure disorder with last seizure one week ago, opiate addiction and now suboxone addiction and currently in rehab. Last Myocardial Infarction Date:: 2011-treated at [facility] History of Any Multi-Drug Resistant Organisms: None Reported Past Surgical History: Heart Catheterization Additional Past Surgical History / Comment(s): Cardiac cath without intervention, cervical injections. Past Anesthesia/Blood Transfusion Reactions: No Reported Reaction Past Psychological History: Bipolar, Depression Smoking Status: Current every day smoker Past Alcohol Use History: None Reported Past Drug Use History: Opiates - Past Family History Mother Family Medical History: No Reported History Father Family Medical History: Diabetes Mellitus General Exam Limitations: no limitations General appearance: alert, in no apparent distress Head exam: Present: atraumatic, normocephalic Eye exam: Present: normal appearance Neck exam: Present: normal inspection, full ROM. Absent: tenderness, meningismus Respiratory exam: Present: normal lung sounds bilaterally. Absent: respiratory distress, wheezes, rales, rhonchi, stridor Cardiovascular Exam: Present: regular rate, normal rhythm, normal heart sounds. Absent: systolic murmur, diastolic murmur, rubs, gallop GI/Abdominal exam: Present: soft. Absent: tenderness Extremities exam: Present: normal inspection Back exam: Present: normal inspection. Absent: vertebral tenderness Neurological exam: Present: alert, oriented X3. Absent: motor sensory deficit Skin exam: Present: warm, dry, intact, normal color. Absent: rash Course Vital Signs 08/31/21 08/31/21 00:47 02:54 Temperature 98.1 F Pulse Rate 71 75 Respiratory 18 18 Rate Blood Pressure 134/81 132/84 O2 Sat by Pulse 99 99 Oximetry Disposition Clinical Impression: Generalized seizure, Cervical strain, acute Disposition: HOME SELF-CARE Condition: Good Instructions (If sedation given, give patient instructions): Seizure/Epilepsy Discharge Instructions & Follow-Up Prescriptions: predniSONE [Deltasone] 20 mg PO BID #8 tab Gabapentin 300 mg PO TID 3 Days #21 cap Is patient prescribed a controlled substance at d/c from ED?: No Referrals: Hanh Badillo MD [Primary Care Provider] - 1-2 days
== END 2021-08-31 02:56 | disposition home or self-care (01) ==
LOC: EC 00:38
DX: S16.1XXA Strain of muscle, fascia and tendon at neck level, initial encounter (principal); R56.9 Unspecified convulsions; E78.5 Hyperlipidemia, unspecified; I10 Essential (primary) hypertension; I25.2 Old myocardial infarction; F31.9 Bipolar disorder, unspecified; F17.200 Nicotine dependence, unspecified, uncomplicated; Z79.899 Other long term (current) drug therapy; X50.0XXA Overexertion from strenuous movement or load, initial encounter
CPT/HCPCS: 99284; J7512